=== PATIENT | male | born 1960 | race Caucasian/White ===

== ENCOUNTER → 2017-02-28 | Outpatient (CLI) | payer OTHER ==
--- NOTE | 2017-03-01 09:26 | ECHOF ---
Referral Reason:R60.9 Edema, unspecified MEASUREMENTS -------- HEIGHT: 188.0 cm WEIGHT: 136.1 kg BP: 145/72 RVIDd: 3.9 cm (< 3.3) IVSd: 1.2 cm (0.6 - 1.1) LVIDd: 5.3 cm (3.9 - 5.3) LVPWd: 1.0 cm (0.6 - 1.1) IVSs: 1.8 cm LVIDs: 3.6 cm LVPWs: 1.6 cm LA Diam: 4.1 cm (2.7 - 3.8) LAESV Index (A-L): 57.99 ml/m Ao Diam: 3.6 cm (2.0 - 3.7) AV Cusp: 2.8 cm (1.5 - 2.6) MV EXCURSION: 21.388 mm (> 18.000) MV EF SLOPE: 117 mm/s (70 - 150) EPSS: 0.6 cm MV E Isidro: 0.86 m/s MV DecT: 232 ms MV A Isidro: 0.64 m/s MV E/A Ratio: 1.34 AV maxP.70 mmHg AV maxP.70 mmHg AV meanP.98 mmHg RAP: 5.00 mmHg RVSP: 31.21 mmHg FINDINGS -------- Sinus rhythm. This was a technically good study. The left ventricular size is normal. There is borderline concentric left ventricular hypertrophy. Overall left ventricular systolic function is normal with, an EF between 60 - 65 %. The right ventricle is mild to moderately enlarged. LA is severely dilated >40 ml/m2 The right atrium is normal in size. The aortic valve is trileaflet and appears structurally normal. The mitral valve is normal. Mild tricuspid regurgitation present. Right ventricular systolic pressure is normal at < 35 mmHg. The pulmonic valve was not well visualized. The aortic root size is normal. The inferior vena cava is mildly dilated. There is no pericardial effusion. CONCLUSIONS -------- 1. Sinus rhythm. 2. The mitral valve is normal. 3. Mild tricuspid regurgitation present. 4. Right ventricular systolic pressure is normal at < 35 mmHg. 5. The pulmonic valve was not well visualized. 6. The aortic root size is normal. 7. The inferior vena cava is mildly dilated. 8. There is no pericardial effusion. 9. This was a technically good study. 10. The left ventricular size is normal. 11. There is borderline concentric left ventricular hypertrophy. 12. Overall left ventricular systolic function is normal with, an EF between 60 - 65 %. 13. The right ventricle is mild to moderately enlarged. 14. LA is severely dilated >40 ml/m2 15. The right atrium is normal in size. 16. The aortic valve is trileaflet and appears structurally normal. [employer]: Bernadette Venegas RDCS
== END | disposition home or self-care (01) ==
LOC: RADECHMAIN 16:25
PROVIDERS: ATTEND Family Medicine
DX: I07.1 Rheumatic tricuspid insufficiency (principal)
CPT/HCPCS: 93306

== ENCOUNTER 2022-06-18 22:18 | Emergency (ER) | payer BC ==
[2022-06-18 22:28] VITALS: TEMP 98.2
--- NOTE | 2022-06-18 22:31 | ED ---
General Adult HPI - General Source: patient, RN notes reviewed Mode of arrival: wheelchair Limitations: no limitations <Rojas Urias - Last Filed: 06/18/22 22:30> - History of Present Illness Onset/Timin -: days(s) Location: left, lower extremity Radiation: non-radiation Quality: aching Consistency: constant Improves with: none Worsens with: none <Geronimo Shannon - Last Filed: 06/19/22 08:28> <Elvis Merrill - Last Filed: 06/19/22 08:46> - General Chief complaint: Extremity Problem,Nontraumatic Stated complaint: Shortness of Breath, Leg Swelling Time Seen by Provider: 06/18/22 22:29 - History of Present Illness Initial comments: 61-year-old male presents emergency from chief complaint of left leg pain he states that he was diagnosed in April blood clots. Patient states she's been taking liquids he has been follow-up with Dr. Armas. Patient states that pain seemed to worsen. Patient also states that he had some tremoring of his left arm states he took some Tylenol resolved. He states his family O started complaining about his leg pains are present emergency department. Patient denies any change in swelling of his left leg. (Rojas Urias) - Related Data Home Medications Medication Instructions Recorded Confirmed Ferrous Sulfate [Iron (65 MG 325 mg PO DAILY 04/11/16 04/25/22 Elemental)] Furosemide [Lasix] 20 mg PO DAILY 04/11/16 04/25/22 Metoprolol Succinate [Toprol XL] 50 mg PO DAILY 04/11/16 04/25/22 Potassium Chloride [Klor-Con 10 ER] 10 meq PO DAILY 04/11/16 04/25/22 Aspirin 1 tab PO DAILY 04/12/22 04/25/22 Allergies Allergy/AdvReac Type Severity Reaction Status Date / Time No Known Allergies Allergy Verified 06/18/22 22:28 Review of Systems ROS Other: All systems not noted in ROS Statement are negative. <Rojas Urias - Last Filed: 06/18/22 22:30> ROS Other: All systems not noted in ROS Statement are negative. Constitutional: Denies: fever, chills, weakness Respiratory: Denies: cough, dyspnea, wheezes Cardiovascular: Reports: edema. Denies: chest pain, palpitations Gastrointestinal: Denies: abdominal pain, vomiting, diarrhea Genitourinary: Denies: dysuria, hematuria Musculoskeletal: Denies: back pain Skin: Denies: rash Neurological: Denies: headache, weakness, numbness <JorgerosaGeronimo - Last Filed: 06/19/22 08:28> ROS Other: All systems not noted in ROS Statement are negative. <GarfieldElvis - Last Filed: 06/19/22 08:46> ROS Statement: Those systems with pertinent positive or pertinent negative responses have been documented in the HPI. Past Medical History Past Medical History: Atrial Fibrillation, Deep Vein Thrombosis (DVT), Hypertension Additional Past Medical History / Comment(s): Pt is scheduled for cardiac ablation at the [facility] in April 2016, HHT,CARDIAC ABLATION AT [facility] 10/27/20 History of Any Multi-Drug Resistant Organisms: None Reported Past Surgical History: No Surgical Hx Reported, Cardiac Ablation, Joint Replacement Additional Past Surgical History / Comment(s): AMINATA, cardioversions x 2, colonoscopy-normal. left knee Past Anesthesia/Blood Transfusion Reactions: No Reported Reaction Past Psychological History: No Psychological Hx Reported Smoking Status: Never smoker Past Alcohol Use History: None Reported Past Drug Use History: None Reported - Past Family History Father Family Medical History: Musculoskeletal Disorder, Neurologic Disorder Additional Family Medical History / Comment(s): Father of ALS at the age of 69yrs. Mother Family Medical History: Cancer Additional Family Medical History / Comment(s): Mother had colon cancer and a AAA repair. She is 78yrs old. <Rojas Urias - Last Filed: 06/18/22 22:30> General Exam Limitations: no limitations <Rojas Urias - Last Filed: 06/18/22 22:30> General appearance: alert, in no apparent distress Head exam: Present: atraumatic, normocephalic Eye exam: Present: normal appearance. Absent: scleral icterus, conjunctival injection Neck exam: Present: normal inspection, full ROM Respiratory exam: Present: normal lung sounds bilaterally. Absent: respiratory distress, wheezes, rales, rhonchi, stridor Cardiovascular Exam: Present: regular rate, normal rhythm, normal heart sounds. Absent: systolic murmur, diastolic murmur, rubs, gallop GI/Abdominal exam: Present: soft. Absent: distended, tenderness, guarding, rebound, rigid, mass Extremities exam: Present: normal inspection, normal capillary refill, pedal edema (There is some left leg edema greater than right leg. There is no palpable cord. No Homans sign.). Absent: calf tenderness Neurological exam: Present: alert Skin exam: Present: warm, dry, intact, normal color. Absent: rash <Geronimo Shannon - Last Filed: 06/19/22 08:28> Course Vital Signs 06/18/22 06/19/22 22:24 06:30 Temperature 98.2 F Pulse Rate 103 H 99 Respiratory 16 18 Rate Blood Pressure 115/71 110/66 O2 Sat by Pulse 93 L 98 Oximetry Medical Decision Making - Lab Data Result diagrams: 06/18/22 23:03 06/18/22 23:03 <Geronimo Shannon - Last Filed: 06/19/22 08:28> - Lab Data Result diagrams: 06/18/22 23:03 06/18/22 23:03 <Elvis Merrill - Last Filed: 06/19/22 08:46> - Medical Decision Making Patient was signed out to me pending results of a venous duplex study. Patient presents originally for right left leg pain. Has known DVTs and left lower extremity. Is already on Eliquis and has not missed any doses. Patient had some hand tremors as well as home. Thorough workup has already been completed by the prior physician, including basic laboratory studies, d-dimer, cardiac workup. He was unremarkable except for slightly elevated D dimer of 0.64 with a known history of blood clots. Chest CT evaluating for PE was negative for pulmonary embolism. Patient's family witnessed wanted duplex as well and this was completed. Results returned and duplex is positive for known left lower extremity DVT. On reevaluation, patient is feeling improved. Vital signs within acceptable limits. I did discuss with him his workup. He is resting comfortable at this time. Has a follow-up with his surgeon tomorrow. We found no new etiology at this time for his chronic left leg pain since his surgery for meniscus surgery last month. I do believe it is safe for him to be discharged home which he accepted. He'll be given Tylenol 3 starter pack. Strict return precautions were discussed. Patient is compliant with his Eliquis AT home. I instructed the patient to follow up with their PCP/surgeon in the next 1-3 days. I explained that the patient should return to the emergency department if they experience any worsening symptoms. Strict return precautions were discussed with the patient. The patient expressed understanding of these instructions. I answered all questions that the patient had. The patient was discharged home in fair condition with their prescriptions and follow up information. Was pt. sent in by a medical professional or institution (, PA, SPA DIRECTOR/FINANCE, urgent care, hospital, or usp...) When possible be specific @ -No Did you speak to anyone other than the patient for history (EMS, parent, family, police, friend...)? What history was obtained from this source @ -Yes, patient's daughter and . They provided some pertinent history. Did you review nursing and triage notes (agree or disagree)? Why? @ -I reviewed and agree with nursing and triage notes Were old charts reviewed (outside hosp., previous admission, EMS record, old EKG, old radiological studies, urgent care reports/EKG's, usp records)? Report findings @ -No old charts were reviewed Differential Diagnosis (chest pain, altered mental status, abdominal pain women, abdominal pain men, vaginal bleeding, weakness, fever, dyspnea, syncope, headache, dizziness, GI bleed, back pain, seizure, CVA, palpatations, mental health)? @ -Chronic left leg pain, chronic pain secondary to DVT, arthritis, postop issue. This list is not all inclusive. EKG interpreted by me (3pts min.). @ -None done X-rays interpreted by me (1pt min.). @ -None done CT interpreted by me (1pt min.). @ -Negative for PE on CT angiogram of the chest U/S interpreted by me (1pt. min.). @ -DVT ultrasound on the left volar x-ray shows a known left lower extremity DVT. What testing was considered but not performed or refused? (CT, X-rays, U/S, labs)? Why? @ -None What meds were considered but not given or refused? Why? @ -None Did you discuss the management of the patient with other professionals (professionals i.e. , PA, SPA DIRECTOR/FINANCE, lab, RT, psych nurse, oncology social worker, sericulture teacher, teacher, rating officer, case fitter)? Give summary @ -No Was smoking cessation discussed for >3mins.? @ -No Was critical care preformed (if so, how long)? @ -No Were there social determinants of health that impacted care today? How? (Homelessness, low income, unemployed, alcoholism, drug addiction, transportation, low edu. Level, literacy, decrease access to med. care, longterm, rehab)? @ -No Was there de-escalation of care discussed even if they declined (Discuss DNR or withdrawal of care, Hospice)? DNR status @ -No What co-morbidities impacted this encounter? (DM, HTN, Smoking, COPD, CAD, Cancer, CVA, ARF, Chemo, Hep., AIDS, mental health diagnosis, sleep apnea, morbid obesity)? @ -Recent left knee surgery, known left lower extremity DVT. Was patient admitted / discharged? Hospital course, mention meds given and route, prescriptions, significant lab abnormalities, going to OR and other pertinent info. @ -Discharged home. See above for ED course. Undiagnosed new problem with uncertain prognosis? @ -No Drug Therapy requiring intensive monitoring for toxicity (Heparin, Nitro, Insulin, Cardizem)? @ -No Were any procedures done? @ -No Diagnosis/symptom? @ -Left lower extremity DVT Acute, or Chronic, or Acute on Chronic? @ -Chronic Uncomplicated (without systemic symptoms) or Complicated (systemic symptoms)? @ -Uncomplicated Side effects of treatment? @ -No Exacerbation, Progression, or Severe Exacerbation? @ -No Poses a threat to life or bodily function? How? (Chest pain, [place], [place], pneumonia, PE, COPD, DKA, ARF, appy, cholecystitis, CVA, Diverticulitis, Homicidal, Suicidal, threat to staff... and all critical care pts) @ -No Diagnosis/symptom? @ -Left lower extremity pain Acute, or Chronic, or Acute on Chronic? @ -Chronic Uncomplicated (without systemic symptoms) or Complicated (systemic symptoms)? @ -Uncomplicated Side effects of treatment? @ -none Exacerbation, Progression, or Severe Exacerbation] @ -no Poses a threat to life or bodily function? @ -no (Elvis Merrill) - Lab Data Lab Results 06/18/22 06/18/22 06/19/22 Range/Units 23:03 23:03 02:45 WBC 5.4 (3.8-10.6) k/uL RBC 4.68 (4.30-5.90) m/uL Hgb 11.6 L (13.0-17.5) gm/dL Hct 37.7 L (39.0-53.0) % MCV 80.5 (80.0-100.0) fL MCH 24.8 L (25.0-35.0) pg MCHC 30.8 L (31.0-37.0) g/dL RDW 15.9 H (11.5-15.5) % Plt Count 157 (150-450) k/uL MPV 11.2 Neutrophils % 88 % Lymphocytes % 3 % Monocytes % 6 % Eosinophils % 0 % Basophils % 0 % Neutrophils # 4.8 (1.3-7.7) k/uL Lymphocytes # 0.2 L (1.0-4.8) k/uL Monocytes # 0.3 (0-1.0) k/uL Eosinophils # 0.0 (0-0.7) k/uL Basophils # 0.0 (0-0.2) k/uL Hypochromasia Slight D-Dimer 0.64 H (<0.60) mg/L FEU Sodium 136 L (137-145) mmol/L Potassium 4.0 (3.5-5.1) mmol/L Chloride 104 (98-107) mmol/L Carbon Dioxide 26 (22-30) mmol/L Anion Gap 6 mmol/L BUN 23 H (9-20) mg/dL Creatinine 0.78 (0.66-1.25) mg/dL Est GFR (CKD-EPI)AfAm >90 (>60 ml/min/1.73 sqM) Est GFR (CKD-EPI)NonAf >90 (>60 ml/min/1.73 sqM) Glucose 114 H (74-99) mg/dL Calcium 8.2 L (8.4-10.2) mg/dL Magnesium (1.6-2.3) mg/dL Total Bilirubin 0.5 (0.2-1.3) mg/dL AST 40 (17-59) U/L ALT 54 H (4-49) U/L Alkaline Phosphatase 113 (38-126) U/L Troponin I (0.000-0.034) ng/mL Total Protein 5.9 L (6.3-8.2) g/dL Albumin 3.1 L (3.5-5.0) g/dL 06/19/22 06/19/22 Range/Units 02:45 02:45 WBC (3.8-10.6) k/uL RBC (4.30-5.90) m/uL Hgb (13.0-17.5) gm/dL Hct (39.0-53.0) % MCV (80.0-100.0) fL MCH (25.0-35.0) pg MCHC (31.0-37.0) g/dL RDW (11.5-15.5) % Plt Count (150-450) k/uL MPV Neutrophils % % Lymphocytes % % Monocytes % % Eosinophils % % Basophils % % Neutrophils # (1.3-7.7) k/uL Lymphocytes # (1.0-4.8) k/uL Monocytes # (0-1.0) k/uL Eosinophils # (0-0.7) k/uL Basophils # (0-0.2) k/uL Hypochromasia D-Dimer (<0.60) mg/L FEU Sodium (137-145) mmol/L Potassium (3.5-5.1) mmol/L Chloride (98-107) mmol/L Carbon Dioxide (22-30) mmol/L Anion Gap mmol/L BUN (9-20) mg/dL Creatinine (0.66-1.25) mg/dL Est GFR (CKD-EPI)AfAm (>60 ml/min/1.73 sqM) Est GFR (CKD-EPI)NonAf (>60 ml/min/1.73 sqM) Glucose (74-99) mg/dL Calcium (8.4-10.2) mg/dL Magnesium 1.9 (1.6-2.3) mg/dL Total Bilirubin (0.2-1.3) mg/dL AST (17-59) U/L ALT (4-49) U/L Alkaline Phosphatase (38-126) U/L Troponin I <0.012 (0.000-0.034) ng/mL Total Protein (6.3-8.2) g/dL Albumin (3.5-5.0) g/dL Disposition <Rojas Urias - Last Filed: 06/18/22 22:30> <Geronimo Shannon - Last Filed: 06/19/22 08:28> Is patient prescribed a controlled substance at d/c from ED?: No Time of Disposition: 08:30 <Elvis Merrill - Last Filed: 06/19/22 08:46> Clinical Impression: Chronic pain of left lower extremity, Chronic deep vein thrombosis (DVT) of left lower extremity Disposition: HOME SELF-CARE Condition: Fair Referrals: Chino Johnson MD [Primary Care Provider] - 1-2 days
[2022-06-18 23:17] LABS: Basophils % (A) 0 %; Eosinophils % (A) 0 %; HCT 37.7 % (39.0-53.0); HGB 11.6 gm/dL (13.0-17.5); Hypochromasia Slight; Lymphocytes # (A) 0.2 k/uL (1.0-4.8); Lymphocytes % (A) 3 %; MCH 24.8 pg (25.0-35.0); MCHC 30.8 g/dL (31.0-37.0); MCV 80.5 fL (80.0-100.0); Mean Platelet Volume 11.2; Monocytes # (A) 0.3 k/uL (0-1.0); Monocytes % (A) 6 %; Neutrophils # (A) 4.8 k/uL (1.3-7.7); Neutrophils % (A) 88 %; Platelet Count 157 k/uL (150-450); RBC 4.68 m/uL (4.30-5.90); RDW 15.9 % (11.5-15.5); WBC 5.4 k/uL (3.8-10.6)
[2022-06-18 23:30] LABS: ALT 54 U/L (4-49); AST 40 U/L (17-59); African American GFR (CKD) >90 (>60 ml/min/1.73 sqM); Albumin 3.1 g/dL (3.5-5.0); Alkaline Phosphatase 113 U/L (38-126); Anion Gap 6 mmol/L; Blood Urea Nitrogen 23 mg/dL (9-20); Calcium 8.2 mg/dL (8.4-10.2); Carbon Dioxide 26 mmol/L (22-30); Chloride 104 mmol/L (98-107); Glucose 114 mg/dL (74-99); Non-African American GFR(CKD) >90 (>60 ml/min/1.73 sqM); Sodium 136 mmol/L (137-145); Total Bilirubin 0.5 mg/dL (0.2-1.3); Total Protein 5.9 g/dL (6.3-8.2)
--- NOTE | 2022-06-19 05:35 | P.PN ---
Progress Note - Text Progress Note Date: 06/19/22 patient and family does not want admission , they want to wait for CTA chest and venous doppler US to see if there is a new blood clots . if there are no new blood clots , they would like to go home. Dr Rush notified of these wishes.
--- NOTE | 2022-06-19 05:57 | CT ---
EXAMINATION TYPE: CT chest angio for PE DATE OF EXAM: 06/19/2022 COMPARISON: None HISTORY: SOB, leg swelling, elevated D dimer CT DLP: 966.6 mGycm Automated exposure control for dose reduction was used. CONTRAST: Performed with IV Contrast, patient injected with 100ml mL of Isovue 370. Images obtained from the thoracic inlet through the diaphragm with the IV contrast. There are Three-D postprocessed images. There is some 3 x 1.5 cm pleural-based infiltrate right posterior lung base. No pleural effusion. Hea rt is top normal in size. No pericardial effusion. There are no hilar masses. There is no mediastinal adenopathy. There is normal contrast opacification of the pulmonary arteries. No filling defect. Thoracic aorta is intact. No aneurysm or dissection. The thoracic spine is intact. Sternum is intact. No compression fracture. IMPRESSION: No evidence of pulmonary embolism. Posterior right lower lobe infiltrate adjacent to the pleura.
[2022-06-19 07:05] VITALS: BP 110/66; RESP 18
--- NOTE | 2022-06-19 08:07 | US ---
EXAMINATION TYPE: US venous doppler duplex LE LT DATE OF EXAM: 06/19/2022 7:26 AM COMPARISON: NONE CLINICAL HISTORY: 61-year-old male leg pain, possible DVT. Pain HX of DVT on blood thinners. SIDE PERFORMED: Left TECHNIQUE: The lower extremity deep venous system is examined utilizing real time linear array sonog ivan with graded compression, doppler sonography and color-flow sonography. FINDINGS: VESSELS IMAGED: Common Femoral Vein Deep Femoral Vein Greater Saphenous Vein * Femoral Vein Popliteal Vein Small Saphenous Vein * Proximal Calf Veins (* superficial vessels) Left Leg: Positive for DVT Femoral to popliteal Vein. IMPRESSION: Exam positive for occlusive/acute DVT spanning the femoral vein through the popliteal vein of the lef t lower extremity.
[2022-06-19] MEDS ORDERED: ACET/COD 300 MG/30 MG STARTER PACK 6 TAB BTL PO STA (08:29)
[2022-06-19 09:05] VITALS: PULSE 86
== END 2022-06-19 09:05 | disposition home or self-care (01) ==
LOC: EC 22:18
DX: I82.502 Chronic embolism and thrombosis of unspecified deep veins of left lower extremity (principal); G89.29 Other chronic pain; I10 Essential (primary) hypertension; I48.91 Unspecified atrial fibrillation; Z79.82 Long term (current) use of aspirin; Z79.01 Long term (current) use of anticoagulants
CPT/HCPCS: 36415; 71275; 80053; 83735; 84484; 85025; 85379; 99284